=== PATIENT | female | born 1985 | race Caucasian/White ===

== ENCOUNTER 2017-04-03 17:21 | Emergency (ER) | payer MEDICAID ==
[~2017-04-03] VITALS: Ht 170.2 cm; Wt 57.3 kg
[~2017-04-03 17:21] MED LIST: SERT100T PO; TRAZ100T15 PO
[2017-04-03 18:31] VITALS: BP 111/74
[2017-04-03] MEDS ORDERED: LORazepam 1MG TABLET PO ONE (19:00)
[2017-04-03 19:09] LABS: HCG UR OBC PASS
[2017-04-03] MEDS ORDERED: LORazepam 1MG TABLET ONE (19:20)
[2017-04-03 19:22] LABS: DAU SCREEN DISCLAIMER
== END 2017-04-03 20:01 | disposition home or self-care (01) ==
LOC: ED 19:13
DX: F10.120 Alcohol abuse with intoxication, uncomplicated (principal); F19.129 Other psychoactive substance abuse with intoxication, unspecified
CPT/HCPCS: 80307; 81025; 93005; 99285

== ENCOUNTER 2017-06-19 11:26 | Emergency (ER) | payer MEDICAID ==
[~2017-06-19] VITALS: Ht 170.2 cm; Wt 59.0 kg
[2017-06-19 11:28] VITALS: BP 130/80
== END 2017-06-19 12:04 | disposition home or self-care (01) ==
LOC: ED 11:55
DX: K08.89 Other specified disorders of teeth and supporting structures (principal); F32.9 Major depressive disorder, single episode, unspecified
CPT/HCPCS: 99283

== ENCOUNTER 2017-07-02 16:46 | Emergency (ER) | payer MEDICAID ==
[~2017-07-02] VITALS: Ht 170.2 cm; Wt 60.6 kg
[2017-07-02 16:49] VITALS: BP 133/84
== END 2017-07-02 17:36 | disposition left against medical advice (07) ==
LOC: ED 17:30
DX: J02.9 Acute pharyngitis, unspecified (principal); Z53.21 Procedure and treatment not carried out due to patient leaving prior to being seen by health care provider

== ENCOUNTER 2017-07-04 12:20 | Emergency (ER) | payer MEDICAID ==
[~2017-07-04] VITALS: Ht 170.2 cm; Wt 59.0 kg
[2017-07-04 12:37] VITALS: BP 134/84
== END 2017-07-04 14:24 | disposition home or self-care (01) ==
LOC: ED 13:34
DX: M25.511 Pain in right shoulder (principal); Z76.0 Encounter for issue of repeat prescription; K02.9 Dental caries, unspecified; G89.11 Acute pain due to trauma
CPT/HCPCS: 99284

== ENCOUNTER 2018-05-02 02:32 | Emergency (ER) | payer MEDICAID ==
[~2018-05-02] VITALS: Ht 157.5 cm; Wt 56.8 kg
[~2018-05-02 02:32] MED LIST changes: +TRAZ-137 PO; -TRAZ100T15 PO
[2018-05-02 04:20] VITALS: BP 138/93
== END 2018-05-02 04:21 | disposition home or self-care (01) ==
LOC: ED 04:15
DX: G89.11 Acute pain due to trauma (principal); M25.512 Pain in left shoulder; M25.572 Pain in left ankle and joints of left foot; M79.672 Pain in left foot; F17.200 Nicotine dependence, unspecified, uncomplicated
CPT/HCPCS: 99284

== ENCOUNTER 2018-11-08 09:47 | Emergency (ER) | payer SELFPAY ==
[~2018-11-08] VITALS: Ht 170.2 cm; Wt 50.0 kg
--- NOTE | 2018-11-08 10:13 | NUR ---
WC TO LOBBY WITH FAMILY MEMBER.
--- NOTE | 2018-11-08 10:20 | NUR ---
Assumed care of patient. C/O dental pain. Patient uncooperative with exam and appears intoxicated. "Dad number 2" at bedside. Will continue to monitor.
[2018-11-08 10:42] LABS: ALANINE AMINOTRANSFERASE 130 U/L (12-78); ALBUMIN 4.3 g/dL (3.4-5.0); ANION GAP 10 mmol/L (5-15); CALCIUM 9.5 mg/dL (8.5-10.1); CHLORIDE 91 mmol/L (98-107); CREATININE 1.04 mg/dL (0.55-1.02)
[2018-11-08 10:44] LABS: ALKALINE PHOSPHATASE 141 U/L (45-117)
[2018-11-08 10:52] LABS: BASOPHILS # (AUTO) 0.01 x10^3/uL (0-0.1); BASOPHILS % (AUTO) 0 % (0-1); EOSINOPHILS # (AUTO) 0.03 x10^3/uL (0-0.4); EOSINOPHILS % (AUTO) 1 % (1-7); LYMPHOCYTES # (AUTO) 0.92 x10^3/uL (1-3.4); LYMPHOCYTES % (AUTO) 21 % (22-44); MD SCAN; MEAN CORPUSCULAR HEMOGLOBIN 32.3 pg (27.0-34.8); MEAN CORPUSCULAR HGB CONC 33.5 g/dL (32.4-35.8); MEAN CORPUSCULAR VOLUME 96.5 fL (80-100); MEAN PLATELET VOLUME 9.3 fL (7.4-10.4); MONOCYTES # (AUTO) 0.53 x10^3/uL (0.2-0.8); MONOCYTES % (AUTO) 12 % (2-9); NEUTROPHILS # (AUTO) 2.95 x10^3/uL (1.8-6.8); NEUTROPHILS % (AUTO) 66 % (42-75); PLATELET COUNT 97 x10^3/uL (130-400); RED CELL DISTRIBUTION WIDTH 14.8 % (9.6-15.2)
--- NOTE | 2018-11-08 11:33 | NUR ---
Resting in [facility]. Provided with crackers and diet sprite. VSS. NAD.
--- NOTE | 2018-11-08 11:52 | NUR ---
Alvarado syed in [facility] - 11/08/18 at 1152 by DEL Urine sent. No other needs at this time.
[2018-11-08 12:46] VITALS: BP 114/78
--- NOTE | 2018-11-08 12:47 | NUR ---
Patient/Caregiver given discharge instructions and they have confirmed that they understand the instructions. Patient ambulatory with steady gait.
== END 2018-11-08 12:50 | disposition home or self-care (01) ==
LOC: ED 11:12
DX: K08.89 Other specified disorders of teeth and supporting structures (principal); F32.9 Major depressive disorder, single episode, unspecified; F17.200 Nicotine dependence, unspecified, uncomplicated; Z90.89 Acquired absence of other organs
CPT/HCPCS: 36415; 80053; 80307; 82140; 85025; 93005; 99284